=== PATIENT | female | born 1990 | race Caucasian/White ===

== ENCOUNTER → 2018-09-14 | Outpatient (REF) | payer BC | LOC: M LAB LCGH 13:45 | PROVIDERS: ATTEND Nurse Practitioner Adult Health | DX: Z12.4 Encounter for screening for malignant neoplasm of cervix (principal) ==

== ENCOUNTER 2021-12-23 02:05 | Inpatient (IN) | payer BC ==
[~2021-12-23] VITALS: Ht 165.1 cm; Wt 79.5 kg
[2021-12-23] VITALS (20 sets, daily range): BP systolic 95–203; BP diastolic 50–115
[2021-12-23] MEDS ORDERED: PRENTAB9 PO (02:26)
[2021-12-23] MEDS ORDERED: HOME MED LIST COMPLETE! XX SCH (02:30)
[2021-12-23] MEDS ORDERED: OXYTOCIN INJ 10 UNITS/ML VIAL (J2590) IM PRN (02:40)
[2021-12-23] MEDS ORDERED: METHYLERGONOVINE MALEATE 0.2 MG/ML VIAL (J2210) IM PRN (02:40)
[2021-12-23] MEDS ORDERED: OXYTOCIN DRIP 30 UNITS in IV 1 EA IV PRN ×6 (02:40)
[2021-12-23] MEDS ORDERED: CARBOPROST TROMETHAMINE 250 MCG/ML AMP IM PRN (02:40)
[2021-12-23] MEDS ORDERED: OXYTOCIN INJ 10 UNITS/ML VIAL (J2590) IV PRN (02:40)
[2021-12-23] MEDS ORDERED: TRANEXAMIC ACID INJection 1,000 MG in NS 100 ML IV PRN (02:40)
[2021-12-23] MEDS ORDERED: LIDOCAINE 1% MDV 20ML VIAL INFIL PRN (02:40)
[2021-12-23 03:11] LABS: HEMATOCRIT 35.1 % (36.0-47.0); HEMOGLOBIN 11.7 g/dl (12.0-15.5); MEAN CORPUSCULAR HEMOGLOBIN 29.2 pg (27.0-33.0); MEAN CORPUSCULAR HGB CONC 33.3 g/dl (32.0-36.5); MEAN CORPUSCULAR VOLUME 87.5 fl (80.0-96.0); PLATELET COUNT, AUTOMATED 164 10^3/uL (150-450); RED BLOOD COUNT 4.01 10^6/uL (4.00-5.40); WHITE BLOOD COUNT 11.1 10^3/uL (4.0-10.0)
[2021-12-23] MEDS ORDERED: OXYTOCIN DRIP 30 UNITS in IV 1 EA IV SCH ×2 (07:45→18:55)
[2021-12-23] MEDS: LR 1,000 ML IV SCH ×3 (08:14→16:31)
[2021-12-23 18:03] LABS: CORD GAS HCO3 V 20.9 MEQ/L; CORD GAS O2 SAT V 38.6 %; CORD GAS PCO2 V 50.4 mmHg; CORD GAS PH V 7.235 UNITS; CORD GAS PO2 V 19.4 mmHg; CORD GAS SBC V 17.5 MEQ/L; CORD GAS TCO2 V 22.4 MEQ/L
[2021-12-23] MEDS ORDERED: IBUPROFEN 800 MG TAB PO ONE (18:45)
[2021-12-23] MEDS ORDERED: DIBUCAINE 1% OINTMENT 30GM TOP PRN (18:55)
[2021-12-23] MEDS ORDERED: METHYLERGONOVINE MALEATE 0.2 MG TAB PO PRN (18:55)
[2021-12-23] MEDS ORDERED: LIDOCAINE 1% MDV 20ML VIAL INFIL ONE (18:55)
[2021-12-23] MEDS ORDERED: ACETAMINOPHEN TAB 650MG DOSE (2X325MG) PO PRN (18:55)
[2021-12-23] MEDS ORDERED: DOCUSATE SODIUM 100MG CAPSULE PO PRN (18:55)
[2021-12-23] MEDS ORDERED: ACETAMINOPHEN 500 MG TAB PO PRN (18:55)
[2021-12-23] MEDS ORDERED: IBUPROFEN 600MG TAB PO PRN (18:55)
[2021-12-23] MEDS ORDERED: dexameTHASONE 4 MG/ML 1ML VIAL (J1100 PER 1MG) As Ordered ONE (20:19)
[2021-12-23] MEDS ORDERED: fentaNYL 100 MCG/2 ML INJECTION As Ordered ONE (20:19)
[2021-12-23] MEDS ORDERED: CHLOROPROCAINE PRES. FREE 3% 20ML VIAL As Ordered ONE (20:19)
[2021-12-23] MEDS ORDERED: ONDANSETRON 4MG 2ML VIAL As Ordered ONE (20:19)
[2021-12-23] MEDS ORDERED: ACETAMINOPHEN 1000MG 100ML IV BTL (OFIRMEV) (J0131 PER 10MG) As Ordered ONE (20:19)
[2021-12-23] MEDS ORDERED: ePHEDrine SULFATE 25 MG/5 ML(5MG/ML) SYRINGE As Ordered ONE (20:25)
[2021-12-23] MEDS ORDERED: KETOROLAC 60MG 2ML VIAL As Ordered ONE (20:25)
[2021-12-23] MEDS ORDERED: KETAMINE HCL 200 MG/20 ML VIAL As Ordered ONE (20:49)
[2021-12-23] MEDS ORDERED: GLYCOPYRROLATE INJ 0.2 MG/ML 2 ML VIAL As Ordered ONE (20:49)
[2021-12-23] MEDS ORDERED: MIDAZOLAM INJ 2MG/2ML VIAL (J2250 PER 1MG) As Ordered ONE (20:51)
[2021-12-23] MEDS ORDERED: DOCUSATE SODIUM 100MG CAPSULE PO SCH (21:00)
[2021-12-23] MEDS ORDERED: MOM 30ML SUSPENSION UDC PO PRN (21:35)
[2021-12-23] MEDS ORDERED: metroNIDAZOLE 500 MG in IV 1 EA IV SCH (22:00)
[2021-12-23] MEDS ORDERED: ceFAZolin SOD 2 GM in IV 1 EA IV SCH (22:00)
[2021-12-23] MEDS: DOCUSATE SODIUM 100MG CAPSULE PO SCH (22:04)
[2021-12-24 02:00] VITALS: BP 90/50
[2021-12-24 02:36] VITALS: BP 98/54
[2021-12-24] MEDS: ceFAZolin SOD 2 GM in IV 1 EA IV SCH ×3 (04:23→20:16)
[2021-12-24 06:05] VITALS: BP 103/58
[2021-12-24 07:30] LABS: HEMATOCRIT 28.6 % (36.0-47.0); MEAN CORPUSCULAR HEMOGLOBIN 29.7 pg (27.0-33.0); MEAN CORPUSCULAR HGB CONC 33.6 g/dl (32.0-36.5); MEAN CORPUSCULAR VOLUME 88.5 fl (80.0-96.0); PLATELET COUNT, AUTOMATED 146 10^3/uL (150-450); RED BLOOD COUNT 3.23 10^6/uL (4.00-5.40)
[2021-12-24 07:34] LABS: HEMOGLOBIN 9.6 g/dl (12.0-15.5)
[2021-12-24] MEDS: PRENATAL VITAMINS CHEWABLE TABLET PO SCH (09:00)
[2021-12-24] MEDS: metroNIDAZOLE (FLAGYL) 500MG TABLET PO SCH ×2 (09:38→20:17)
[2021-12-24] MEDS: DOCUSATE SODIUM 100MG CAPSULE PO SCH ×2 (15:30→20:18)
[2021-12-24] MEDS: IBUPROFEN 800 MG TAB PO PRN ×2 (15:31→23:57)
[2021-12-24 18:00] VITALS: BP 99/56
[2021-12-25 06:00] VITALS: BP 100/52
[2021-12-25] MEDS: PRENATAL VITAMINS CHEWABLE TABLET PO SCH (09:00)
[2021-12-25] MEDS: DOCUSATE SODIUM 100MG CAPSULE PO SCH (09:33)
[2021-12-25] MEDS: metroNIDAZOLE (FLAGYL) 500MG TABLET PO SCH (09:33)
[2021-12-25] MEDS ORDERED: IBUP80TA PO (11:14)
[2021-12-25] MEDS ORDERED: COLA100C5 PO (11:14)
[2021-12-25] MEDS ORDERED: ACET1TAB55 PO (11:14)
== END 2021-12-25 12:38 | disposition home or self-care (01) | DRG 560 ==
LOC: M LDO 02:05 → M LDI 02:36 → M OBS 22:44
PROVIDERS: ADMIT Obstetrics & Gynecology Obstetrics; ATTEND Obstetrics & Gynecology Obstetrics
PROC: 0W8NXZZ Division of Female Perineum, External Approach (ICD-10-PCS; 2021-12-23)
PROC: 0DQP0ZZ Repair Rectum, Open Approach (ICD-10-PCS; 2021-12-23)
PROC: 10907ZC Drainage of Amniotic Fluid, Therapeutic from Products of Conception, Via Natural or Artificial Opening (ICD-10-PCS; 2021-12-23)
PROC: 10D07Z6 Extraction of Products of Conception, Vacuum, Via Natural or Artificial Opening (ICD-10-PCS; principal; 2021-12-23 19:57)
DX: O48.0 Post-term pregnancy (principal); O70.3 Fourth degree perineal laceration during delivery; Z3A.42 42 weeks gestation of pregnancy; O76 Abnormality in fetal heart rate and rhythm complicating labor and delivery; Z37.0 Single live birth